=== PATIENT | female | born 1950 ===

== ENCOUNTER 2024-12-10 15:29 | Outpatient (AMB) | payer MEDICARE, SELFPAY ==
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
--- OUTSIDE RECORDS SUMMARY | 2024-12-10 19:42 | XMS_ITS | Clinical Summary ---
Author Organization [facility] Address [address] [place] [address] Care Team Providers Care It Instructor Name Role Phone Indu Coronado PA-C Primary Care Provider Allergies No known active allergies Medications Medication Sig Dispensed Refills Start Date End Date Status omeprazole (PRILOSEC) 20 MG capsule Take 20 mg by mouth daily. 0 Active metoprolol tartrate (LOPRESSOR) 50 MG tablet Take 1 tablet (50 mg total) by mouth 2 (two) times a day. 0 Active lisinopril (PRINIVIL,ZESTRIL) tablet 2.5 mg Take 1 tablet (2.5 mg total) by mouth daily. 0 Active aspirin 81 MG tablet Take 1 tablet (81 mg total) by mouth daily. 0 Active sertraline (ZOLOFT) 100 MG tablet Take 100 mg by mouth daily. 0 Active atorvastatin (LIPITOR) tablet 80 mg Take 1 tablet (80 mg total) by mouth daily. 0 Active glipiZIDE (GLUCOTROL) tablet 10 mg Take 0.5 tablets (5 mg total) by mouth 2 (two) times a day before breakfast and dinner. 0 Active melatonin 3 MG TABS tablet Take by mouth every night at bedtime. 0 Active beclomethasone (QVAR) 80 MCG/ACT inhaler Inhale 1 puff into the lungs 2 (two) times a day. 0 Active albuterol (PROVENTIL HFA;VENTOLIN HFA) 108 (90 BASE) MCG/ACT inhaler Inhale 2 puffs into the lungs every 6 (six) hours as needed for wheezing. 0 Active metFORMIN (GLUCOPHAGE) tablet 500 mg Take 1 tablet (500 mg total) by mouth 2 (two) times a day with meals. 0 Active clonazePAM (KlonoPIN) 0.5 MG tablet Take 1 tablet (0.5 mg total) by mouth every night at bedtime as needed for anxiety. 0 Active mirtazapine (REMERON) 15 MG tablet Take 1 tablet (15 mg total) by mouth every night at bedtime. 30 tablet 5 09/28/2021 Active cefpodoxime (VANTIN) 200 MG tablet Take 1 tablet (200 mg total) by mouth 2 (two) times a day. 0 Active donepezil (ARICEPT) 10 MG tablet Take 1 tablet (10 mg total) by mouth every night at bedtime. 0 Active furosemide (LASIX) 20 MG tablet Take 1 tablet (20 mg total) by mouth 2 (two) times a day. 0 Active QUEtiapine (SEROquel) 50 MG tablet Take 1 tablet (50 mg total) by mouth every night at bedtime. 0 Active lansoprazole 30 MG capsule Take 1 capsule (30 mg total) by mouth daily. 0 Active Active Problems Problem Noted Date Diagnosed Date Malignant neoplasm of upper- outer quadrant of left female breast 08/31/2016 Family History Medical History Relation Name Comments Cancer Father esophageal Cancer Maternal Grandmother gastric Cancer Sister breast ca. Relation Name Status Comments Father Maternal Grandmother Sister Social History Tobacco Use Types Packs/Day Years Used Date Smoking Tobacco: Former Alcohol Use Standard Drinks/Week Comments No 0 (1 standard drink = 0.6 oz pur e alcohol) Sex and Gender Information Value Date Recorded Sex Assigned at Not on file Gender Identity Not on file Sexual Orientation Not on file Job Start Date Occupation Industry Not on file Not on file Not on file Last Filed Vital Signs Vital Sign Reading Time Taken Comments Blood Pressure 152/81 12/22/2023 2:58 PM EDT Pulse 95 12/22/2023 2:58 PM EDT Temperature 37.1 C (98.7 F) 12/22/2023 2:58 PM EDT Respiratory Rate - - Oxygen Saturation 99% 12/22/2023 2:58 PM EDT Inhaled Oxygen Concentration - - Weight 79.4 kg (175 lb) 12/22/2023 2:58 PM EDT Height 152.4 cm (5') 09/28/2021 11:31 AM EDT Body Mass Index 34.18 09/28/2021 11:31 AM EDT Plan of Treatment Health Maintenance Due Date Last Done Comments Hepatitis C Screening 1952 Depression Screening 1964 Preventative Health Evaluation 1970 Shingrix-Zoster Vaccine (1 of 2) 1971 Colon Cancer Screening (Colonoscopy) 1997 Breast Cancer Screening (Mammogram) 2002 Fall Risk Assessment 2017 Osteoporosis Screening (DEXA Scan) 2017 COVID-19 Vaccine (3 - Pfizer risk series) 08/20/2020 07/23/2020, 07/01/2020 Influenza Vaccine (#1) 2024 9, 01/08/2019, 02/08/2017, Additional history exists RSV Adult > 60+ Yrs or (1 - 1-dose 75+ series) 2027 DTap / Tdap / Td (4 - Td or Tdap) 08/03/2033 08/04/2023, 01/15/2013, 06/25/2009 Hepatitis B Vaccines Completed 12/14/2007, 03/07/2007, 01/31/2007 Pneumococcal Vaccine Completed 01/08/2019, 03/02/2017, 01/12/2016, Additional history exists RSV Ped < 20 months Aged Out No longe r eligible based on patient's age to complete this topic Care Teams It Instructor Relationship Specialty Start Date End Date Indu Coronado PA-C [address] [place] [id number] PCP - General Physician Coat Maker 07/09/20
== END 2024-12-10 16:22 | disposition home or self-care (01) ==
LOC: HO.HSM 15:29
PROVIDERS: PCP Internal Medicine; Referring Provider Internal Medicine; Visit Provider Registered Nurse
DX: F03.918 Unspecified dementia, unspecified severity, with other behavioral disturbance (principal); R44.3 Hallucinations, unspecified
CPT/HCPCS: 99214

== ENCOUNTER → 2024-12-10 15:29 | Outpatient (BNVA) | payer OTHER, SELFPAY | PROVIDERS: PCP Internal Medicine; Referring Provider Internal Medicine; Visit Provider Registered Nurse | DX: F03.918 Unspecified dementia, unspecified severity, with other behavioral disturbance (principal); R44.3 Hallucinations, unspecified | CPT/HCPCS: 99212 ==